=== PATIENT | male | born 1995 | race Caucasian/White ===

== ENCOUNTER 2018-12-29 04:46 | Emergency (ER) | payer OTHER, SELFPAY ==
[2018-12-29 04:47] VITALS: BP 130/74; PULSE 72; RESP 16; TEMP 36.7; O2SAT 93; BMI 25.1
--- NOTE | 2018-12-29 04:52 | RAD_ITS ---
STUDY: X-RAY - RIGHT HAND, ATTENTION FINGER REASON FOR EXAM: Male, 23 years old. Laceration of the index finger TECHNIQUE: 3 view(s) of the finger were obtained. COMPARISON: None. FINDINGS: There is a 4.8 mm deep laceration in the palmar aspect of the index finger adjacent to the middle phalanx. No radiopaque foreign bodies are in the soft tissues of the finger and there are no fractures or dislocations Electronically Signed: Madi Jolly MD at 5:17 EDT Tel , Service support , RAD/Finger(s) Min 2 Views
[2018-12-29] MEDS: Diphth,Pertuss(Acell),Tet Vac 0.5 ML Vial IM (05:18)
--- NOTE | 2018-12-29 06:01 | ED.VISSUMM ---
- ER Visit Summary Date of Service: 12/29/18 Chief Complaint: Right index finger laceration History of Present Illness: The patient is a 23 M who presents with injury to his right index finger. He cut this on metal chips at work. When asked to further characterize them they are small like slivers. He works machining. He is uncertain of his last tetanus immunization. Physical Examination: Afebrile vitals unremarkable There is a 2 cm laceration of the right index finger on the palmar side near the DIP he has normal flexion and active full range of motion brisk capillary refill normal sensation light touch Test Results: Finger x-ray shows laceration but no foreign body Emergency Department Course and Treatment: Laceration was anesthetized utilizing a digital block. About 4 cc of 2% lidocaine. An adequate anesthesia was achieved however patient asked that I just proceed with suturing. Wound was cleansed with saline. 3 simple interrupted 5?0 nonabsorbable sutures were placed. Patient instructed on local wound care. Dressing applied. Tetanus was updated. Patient discharged. Treatment Plan: [] Disposition: Discharge Impression: Right index finger laceration This note was generated with cdream network dictation software. It may contain incorrect words, spelling, and punctuation that were not noted in review of the chart prior to signing ED Disposition - Plan for ED Patient: Referrals: Care Physician,No Primary [Primary Care Provider] -
--- NOTE | 2018-12-29 06:03 | ED.DEP ---
ED Disposition - Plan for ED Patient: Instructions: LACERATION, Hand Referrals: Care Physician,No Primary [Primary Care Provider] - Corporate,Care [GROUP OF PHYSICIANS] -
[2018-12-29 06:16] VITALS: BP 120/88; PULSE 75; RESP 18; O2SAT 98
== END 2018-12-29 06:17 | disposition home or self-care (01) ==
PROVIDERS: Emergency Provider Emergency Medicine
DX: S61.210A Laceration without foreign body of right index finger without damage to nail, initial encounter (principal); Z23 Encounter for immunization; W26.8XXA Contact with other sharp object(s), not elsewhere classified, initial encounter; Y93.89 Activity, other specified; Y92.89 Other specified places as the place of occurrence of the external cause; Y99.0 Civilian activity done for income or pay; Z72.0 Tobacco use
CPT/HCPCS: 73140; 90471; 90715; 99283